=== PATIENT | male | born 1975 | race Caucasian/White ===

== ENCOUNTER 2016-05-27 17:49 | Emergency (ER) | payer SELFPAY ==
[~2016-05-27 17:49] MED LIST: PRILOSEC20 MG PO; PROVENTIL0.09 MG/A1; ZES10 PO; ZOC10 PO
[2016-05-27 19:11] VITALS: BP 138/78
== END 2016-05-27 19:11 | disposition home or self-care (01) ==
LOC: ED 17:49
DX: L03.113 Cellulitis of right upper limb (principal)

== ENCOUNTER 2017-09-18 12:00 | Emergency (ER) | payer OTHER ==
[~2017-09-18] VITALS: Ht 170.2 cm; Wt 93.6 kg
[2017-09-18 12:09] VITALS: Ht 170.2 cm; Wt 93.6 kg
[2017-09-18 14:10] LABS: BASOPHIL % 0.7 % (0-2); PLATELET COUNT 174 x10^3mcL (130-400); RED CELL DISTRIBUTION WIDTH 13.3 % (11.5-14.5)
[2017-09-18 14:18] LABS: CALCIUM 7.8 mg/dL (8.5-10.1); CHLORIDE SERUM 108 mmol/L (98-107); CREATININE SERUM 0.8 mg/dL (0.7-1.3); GFR1 > 60 mL/min; GLUCOSE SERUM 80 mg/dL (74-106); POTASSIUM SERUM 3.8 mmol/L (3.5-5.1); SODIUM SERUM 142 mmol/L (136-145)
[2017-09-18 14:23] LABS: ALBUMIN 3.9 g/dL (3.4-5.0); ALKALINE PHOSPHATASE 72 U/L (46-116); ALT/SGPT 32 U/L (16-63); AST/SGOT 15 U/L (15-37); BILIRUBIN TOTAL 0.4 mg/dL (0.20-1.00); TOTAL PROTEIN, SERUM 6.5 g/dL (6.4-8.2)
[2017-09-18 16:57] VITALS: BP 148/64
== END 2017-09-18 18:25 | disposition home or self-care (01) ==
LOC: ED 12:00
PROVIDERS: Emergency Medicine
DX: G89.29 Other chronic pain (principal); M54.5 Low back pain; I10 Essential (primary) hypertension
CPT/HCPCS: A9577; J2060; J2270

== ENCOUNTER 2019-02-02 14:35 | Emergency (ER) | payer OTHER ==
[~2019-02-02] VITALS: Ht 170.2 cm; Wt 94.8 kg
[2019-02-02 14:48] VITALS: BP 144/86; Ht 170.2 cm; Wt 94.8 kg
== END 2019-02-02 15:42 | disposition home or self-care (01) ==
LOC: ED 14:35
DX: L98.8 Other specified disorders of the skin and subcutaneous tissue (principal); I10 Essential (primary) hypertension; Z98.890 Other specified postprocedural states

== ENCOUNTER 2019-04-05 10:10 | Emergency (ER) | payer OTHER, MEDICAID ==
[~2019-04-05] VITALS: Ht 167.6 cm; Wt 94.3 kg
[2019-04-05 10:21] VITALS: Ht 167.6 cm; Wt 94.3 kg
[2019-04-05 13:06] VITALS: BP 148/73
== END 2019-04-05 13:06 | disposition home or self-care (01) ==
LOC: ED 10:10
DX: S61.213A Laceration without foreign body of left middle finger without damage to nail, initial encounter (principal); W23.0XXA Caught, crushed, jammed, or pinched between moving objects, initial encounter; Y93.89 Activity, other specified; Y92.89 Other specified places as the place of occurrence of the external cause; Y99.8 Other external cause status
CPT/HCPCS: 90715; J2001; Q0092

== ENCOUNTER 2019-10-30 04:03 | Emergency (ER) | payer OTHER, MEDICAID ==
[~2019-10-30] VITALS: Ht 170.2 cm; Wt 95.3 kg
[2019-10-30 04:06] VITALS: Ht 170.2 cm; Wt 95.3 kg
[2019-10-30 05:43] LABS: BASOPHIL % 0.4 % (0-2); PLATELET COUNT 204 x10^3mcL (130-400)
[2019-10-30 05:54] LABS: CALCIUM 8.6 mg/dL (8.5-10.1); CARBON DIOXIDE 23.5 mmol/L (21-32); CHLORIDE SERUM 104 mmol/L (98-107); GFR1 > 60 mL/min; GLUCOSE SERUM 107 mg/dL (74-106); POTASSIUM SERUM 3.7 mmol/L (3.5-5.1); SODIUM SERUM 136 mmol/L (136-145)
[2019-10-30 05:58] LABS: ALBUMIN 4.2 g/dL (3.4-5.0); ALKALINE PHOSPHATASE 56 U/L (46-116); ALT/SGPT 42 U/L (16-63); AST/SGOT 16 U/L (15-37); BILIRUBIN TOTAL 0.7 mg/dL (0.20-1.00); LIPASE 92 IU/L (73-393); TOTAL PROTEIN, SERUM 7.3 g/dL (6.4-8.2)
[2019-10-30 07:40] VITALS: BP 118/76
[2019-10-30 08:03] LABS: UA SPECIFIC GRAVITY 1.025 (1.005-1.035); microscopic required? YES; urine erythrocyte NEGATIVE (NEGATIVE)
== END 2019-10-30 07:40 | disposition home or self-care (01) ==
LOC: ED 04:03
PROVIDERS: Emergency Medicine
DX: R10.816 Epigastric abdominal tenderness (principal); R11.10 Vomiting, unspecified; R19.7 Diarrhea, unspecified; I10 Essential (primary) hypertension; Z98.890 Other specified postprocedural states
CPT/HCPCS: J2405

== ENCOUNTER 2019-11-01 07:59 | Emergency (ER) | payer OTHER, MEDICAID ==
[~2019-11-01] VITALS: Ht 170.2 cm; Wt 87.5 kg
[2019-11-01 08:07] VITALS: Ht 170.2 cm; Wt 87.5 kg
[2019-11-01 08:56] LABS: CALCIUM 9.3 mg/dL (8.5-10.1); CARBON DIOXIDE 26.2 mmol/L (21-32); CHLORIDE SERUM 107 mmol/L (98-107); CREATININE SERUM 1.2 mg/dL (0.7-1.3); GFR1 > 60 mL/min; GLUCOSE SERUM 107 mg/dL (74-106); POTASSIUM SERUM 3.7 mmol/L (3.5-5.1); SODIUM SERUM 137 mmol/L (136-145)
[2019-11-01 09:00] LABS: ALBUMIN 4.6 g/dL (3.4-5.0); ALKALINE PHOSPHATASE 60 U/L (46-116); ALT/SGPT 36 U/L (16-63); AST/SGOT 13 U/L (15-37); LIPASE 87 IU/L (73-393)
[2019-11-01 09:04] LABS: BASOPHIL % 0.1 % (0-2); PLATELET COUNT 238 x10^3mcL (130-400); RED CELL DISTRIBUTION WIDTH 13.1 % (11.5-14.5)
[2019-11-01 09:32] VITALS: BP 116/78
== END 2019-11-01 11:08 | disposition home or self-care (01) ==
LOC: ED 07:59
PROVIDERS: Emergency Medicine
DX: K52.9 Noninfective gastroenteritis and colitis, unspecified (principal); I10 Essential (primary) hypertension; Z20.828 Contact with and (suspected) exposure to other viral communicable diseases
CPT/HCPCS: J2405; Q0092; U0003-CS